=== PATIENT | female | born 1985 | race African-American/Black ===

== ENCOUNTER 2016-06-11 19:22 | Emergency (ER) | payer OTHER ==
[~2016-06-11 19:22] MED LIST: ALPR0.25 PO; BENZ100C PO; IBUP-1060 PO; TRAM50TA PO
[2016-06-11 21:22] LABS: BILIRUBIN,URINE NEGATIVE (NEG); GLUCOSE,URINE NEGATIVE (NEG); NITRITE,URINE NEGATIVE (NEG); PH,URINE 7.5; PROTEIN,URINE NEGATIVE (NEG-TRACE); UROBILINOGEN,URINE 0.2 mg/dL (0.2 mg/dL)
[2016-06-11 21:31] LABS: NEG OBC UR NEG; POS OBC UR POS
[2016-06-11 21:36] LABS: BACTERIA,URINE FEW /HPF (0-FEW); RBC,URINE 0 /HPF (0-2); SQUAMOUS EPITHELIAL CELL,UR MOD /LPF; WBC,URINE OCC /HPF (0-4)
[2016-06-11 22:22] VITALS: BP 123/77
[2016-06-11] MEDS ORDERED: FLUC150T PO (22:36)
[2016-06-11] MEDS ORDERED: METR500T PO (22:36)
--- NOTE | 2016-06-11 22:36 | PHYS DOC ---
Past Medical History Past Medical History: Anxiety, Other Additional Past Medical Histor: Gestational Hypertension, Kienbock disease Past Surgical History: Other Additional Past Surgical Histo: Hernia, partial R)wrist replacement Alcohol Use: Occasionally Drug Use: Marijuana Adult General Chief Complaint Chief Complaint: CONTISPATION [facility] HPI Patient is a 31 year old female with history of anxiety presents today with constipation for the last 2 weeks. Patient states she has tried MiraLAX 1 time as well as magnesium sidetracked one time and has had one small bowel movement 4 days ago. Patient denies any nausea vomiting. Denies any fever. She states she has poor appetite. Denies any know cause for her constipation. She states she also has vaginal discharge but she is not concerned for STDs. Review of Systems Review of Systems Constitutional: Denies fever or chills [] Eyes: Denies change in visual acuity, redness, or eye pain [] HENT: Denies nasal congestion or sore throat [] Respiratory: Denies cough or shortness of breath [] Cardiovascular: No additional information not addressed in HPI [] GI: Constipation : Vaginal discharge Musculoskeletal: Denies back pain or joint pain [] Integument: Denies rash or skin lesions [] Neurologic: Denies headache, focal weakness or sensory changes [] Endocrine: Denies polyuria or polydipsia [] Current Medications Current Medications Current Medications Medications (Trade) Dose Ordered Sig/Kane Start Time Stop Time Status Last Admin Dose Admin Bisacodyl (Dulcolax Tab) 10 mg 1X ONCE 06/11/16 23:00 06/11/16 23:01 Magnesium Citrate (Citroma) 296 ml 1X ONCE 06/11/16 23:00 06/11/16 23:01 Sodium Biphosphate/ Sodium Phosphate (Fleet Adult) 133 ml 1X ONCE 06/11/16 23:00 06/11/16 23:01 Allergies Allergies Allergies Coded Allergies Type Severity Reaction Last Updated Verified shellfish derived Allergy Intermediate Hives 10/28/15 Yes Physical Exam Physical Exam Constitutional: Well developed, well nourished, no acute distress, non-toxic appearance. [] HENT: Normocephalic, atraumatic, bilateral external ears normal, oropharynx moist, no oral exudates, nose normal. [] Eyes: PERRLA, EOMI, conjunctiva normal, no discharge. [] Neck: Normal range of motion, no tenderness, supple, no stridor. [] Cardiovascular:Heart rate regular rhythm, no murmur [] Lungs & Thorax: Bilateral breath sounds clear to auscultation [] Abdomen: Bowel sounds normal, soft, no tenderness, no masses, no pulsatile masses. [] Pelvic exam External pelvic appears normal, cervix is closed no CMT, no adnexal tenderness, moderate amount of white discharge in the vaginal vault. Skin: Warm, dry, no erythema, no rash. [] Back: No tenderness, no CVA tenderness. [] Extremities: No tenderness, no cyanosis, no clubbing, ROM intact, no edema. [] Neurologic: Alert and oriented X 3, normal motor function, normal sensory function, no focal deficits noted. [] Psychologic: Affect normal, judgement normal, mood normal. [] Current Patient Data Vital Signs Vital Signs Date Time Temp Pulse Resp B/P Pulse Ox O2 Delivery O2 Flow Rate FiO2 06/11/16 20:33 98.3 80 16 138/87 100 Room Air 98.3 Lab Values Laboratory Tests Test 06/11/16 20:23 Urine Collection Type Unknown Urine Color Yellow Urine Clarity Clear Urine pH 7.5 Urine Specific [place] 1.020 Urine Protein Negativemg/dL (NEG-TRACE) Urine Glucose (UA) Negativemg/dL (NEG) Urine Ketones (Stick) Negativemg/dL (NEG) Urine Blood Negative (NEG) Urine Nitrite Negative (NEG) Urine Bilirubin Negative (NEG) Urine Urobilinogen Dipstick 0.2mg/dL (0.2 mg/dL) Urine Leukocyte Esterase Negative (NEG) Urine RBC 0/HPF (0-2) Urine WBC Occ/HPF (0-4) Urine Squamous Epithelial Cells Mod/LPF Urine Bacteria Few/HPF (0-FEW) Urine Mucus Slight/LPF Urine Test Negative (NEG) Microbiology 06/11/16 Wet Prep - Final, Complete EKG EKG [] Radiology/Procedures Radiology/Procedures [] Course & Med Decision Making Course & Med Decision Making Pertinent Labs and Imaging studies reviewed. (See chart for details) Patient is in the ED with constipation as well as vaginal discharge. Acute abdominal series interpreted by Dr. Llanos has no acute findings but noted for constipation. Patient was given mag citrate in the ED as well as a Fleet enema. She had a large bowel movement in the ED. We talked about increasing fiber intake as well as water intake. Negative urine hCG, urine negative for infection. Wet prep positive for BV. She was also discharged Flagyl. She requested fluconazole for yeast infection prophylaxis, Fluconazole was given to her. She was provided return precautions and discharged in stable condition Mike Disclaimer Mike Disclaimer This electronic medical record was generated, in whole or in part, using a voice recognition dictation system. Departure Departure Impression: Primary Impression: Constipation Additional Impression: Bacterial vaginosis Disposition: 01 HOME, SELF-CARE Condition: STABLE Referrals: CHRISTAL MARK MD (PCP) follow with your doctor in one week. Patient Instructions: Bacterial Vaginosis, Constipation, Adult Additional Instructions: You were seen for constipation, consider taking mag citrate as needed for constipation. Consider taking MiraLAX daily to prevent constipation. Increase your dietary fiber intake as well as a water intake. Follow-up with your own doctor in one week. Come back to the emergency room if symptoms worsen. You also are positive for bacterial vaginosis. Complete your antibiotics. Scripts Fluconazole (Diflucan)150 Mg Tablet1 Tab PO ONCE #1 TAB Ref 1 Take one today and repeat in 7 days Prov:SCOOTER CHEUNG APRN 06/11/16 Metronidazole (Flagyl)500 Mg Tablet1 Tab PO BID #14 TAB Prov:SCOOTER CHEUNG APRN 06/11/16 Problem Qualifiers Primary Impression: Constipation Constipation type: unspecified constipation type Qualified Code: K59.00 - Constipation, unspecified SCOOTER CHEUNG APRN Jun 11, 2016 22:37
[2016-06-11] MEDS ORDERED: SODIUM PHOSPHATES 19/7GM 133 ML ENEMA. PR ONE (23:00)
[2016-06-11] MEDS ORDERED: BISACODYL 5 MG TABLET.DR. PO ONE (23:00)
[2016-06-11] MEDS ORDERED: MAGNESIUM CITRATE 296 ML SOLUTION. PO ONE (23:00)
--- NOTE | 2016-06-12 08:16 | RAD ---
Indication abdominal pain. A single view of the chest was obtained as well as flat and upright films of the abdomen. The chest is compared to an examination 08/06/2015. No prior plain film imaging of the abdomen is available. The heart and pulmonary vessels appear normal. The lungs are clear. There is no pleural fluid or pneumothorax. Bony structures appear grossly intact. There is no free air. The abdominal gas pattern is normal. No organomegaly or abnormal calculi are seen. Moderate amount of stool is noted in the large bowel. IUD is noted. IMPRESSION: No acute or significant finding seen in the chest or abdomen on plain films
== END 2016-06-11 23:22 | disposition home or self-care (01) ==
LOC: ER 19:22
DX: K59.00 Constipation, unspecified (principal); N76.0 Acute vaginitis; F41.9 Anxiety disorder, unspecified; Z96.631 Presence of right artificial wrist joint; Z91.013 Allergy to seafood
CPT/HCPCS: 74022; 81001; 81025; 87491; 87591; 99285; Q0111

== ENCOUNTER 2017-03-02 18:45 | Emergency (ER) | payer OTHER ==
[~2017-03-02] VITALS: Ht 167.6 cm; Wt 89.8 kg
[~2017-03-02 18:45] MED LIST changes: +DOXY100C2 PO; +FLUC150T PO; +METR500T PO; +NITR100C62 PO
[2017-03-02] MEDS ORDERED: LIDO:MAALOX:DONNATAL 1:1:1 15 ML SINGLE DOSE SWSW ONE (19:30)
[2017-03-02 19:33] LABS: BILIRUBIN,URINE NEGATIVE (NEG); GLUCOSE,URINE NEGATIVE (NEG); NITRITE,URINE NEGATIVE (NEG); PROTEIN,URINE NEGATIVE (NEG-TRACE)
[2017-03-02 19:43] LABS: BACTERIA,URINE 0 /HPF (0-FEW); RBC,URINE 0 /HPF (0-2); SQUAMOUS EPITHELIAL CELL,UR FEW /LPF; WBC,URINE OCC /HPF (0-4)
[2017-03-02 20:00] VITALS: BP 165/94
[2017-03-02] MEDS ORDERED: BENZONATATE 100 MG CAPSULE. PO ONE (20:00)
[2017-03-02] MEDS ORDERED: FLUTICASONE 50MCG/NASAL SPRAY 16GM BOTTLE. NS ONE (20:00)
[2017-03-02] MEDS ORDERED: NAPROXEN 500 MG TABLET PO ONE (20:00)
[2017-03-02 20:22] LABS: OBC FLU VALID
[2017-03-02] MEDS ORDERED: GUAI600T47 PO (20:37)
[2017-03-02] MEDS ORDERED: BENZ100C PO (20:37)
--- NOTE | 2017-03-03 00:56 | ED.ADGEN ---
Past Medical History Past Medical History: Anxiety, Other Additional Past Medical Histor: Gestational Hypertension, Kienbock disease Past Surgical History: Other Additional Past Surgical Histo: Hernia, partial R)wrist replacement, RIGHT HIP Alcohol Use: Occasionally Drug Use: Marijuana Adult General Chief Complaint Chief Complaint: MULTIPLE COMPLAINTS HPI HPI Patient is a 31 year old woman, who previously was on blood pressure medication was taken off after she lost weight, who does not take any medications regular basis, who presents to the emergency department with a complaint of cough, productive of yellow sputum, rhinorrhea, sore throat, nasal congestion, body aches, chest pain with coughing, headache, one episode of loose brown stool this morning, that began last week. Patient states that she is positive for sick contacts in her children who she states are now better " but I feel worse than they did". Patient has not yet received a flu vaccination , other vaccines are up-to-date. She states he's been using [id number] medications "a whole bunch", without relief. She states that she last used acetaminophen early this morning. Denies any vomiting, states that she has chest pain with coughing, denies any weakness, numbness, tingling, vision changes, rashes, swelling of the extremities. Review of Systems Review of Systems Constitutional: Denies fever or chills. [] Eyes: Denies change in visual acuity. [] HENT: Nasal congestion and sore throat. Respiratory: Cough, with chest pain, shortness of breath. No wheezing. Cardiovascular: Chest pain located in the center of her chest with coughing. No edema. GI: Denies abdominal pain, nausea, vomiting, bloody stools or diarrhea. [] : Denies dysuria. [] Musculoskeletal: Denies back pain or joint pain. [] Integument: Denies rash. [] Neurologic: Denies headache, focal weakness or sensory changes. [] Endocrine: Denies polyuria or polydipsia. [] Lymphatic: Denies swollen glands. [] Psychiatric: Denies depression or anxiety. [] Current Medications Current Medications Current Medications Medications (Trade) Dose Ordered Sig/Kane Start Time Stop Time Status Last Admin Dose Admin Benzonatate (Tessalon Perle) 100 mg 1X ONCE 03/02/17 20:00 03/02/17 20:01 DC 03/02/17 20:06 100 MG Fluticasone Propionate (Flonase) 2 spray 1X ONCE 03/02/17 20:00 03/02/17 20:01 DC 03/02/17 20:06 2 SPRAY Multi-Ingredient Mouthwash/Gargle (Gi Cocktail Single Dose) 15 ml 1X ONCE 03/02/17 19:30 03/02/17 19:31 DC 03/02/17 19:53 15 ML Naproxen (Naprosyn) 500 mg 1X ONCE 03/02/17 20:00 03/02/17 20:01 DC 03/02/17 20:05 500 MG Allergies Allergies Allergies Coded Allergies Type Severity Reaction Last Updated Verified shellfish derived Allergy Intermediate Hives 10/28/15 Yes Physical Exam Physical Exam Constitutional: Well developed, well nourished, no acute distress, non-toxic appearance. [] HENT: Normocephalic, atraumatic, bilateral external ears normal, oropharynx moist, no oral exudates, patient with erythema of the oropharynx without exudate stated, patient with significant swelling interpreted as bilaterally with clear rhinorrhea. Eyes: PERRLA, EOMI, conjunctiva normal, no discharge. [] Neck: Normal range of motion, no tenderness, supple, no stridor. [] Cardiovascular:Heart rate regular rhythm, no murmur, S1, S2, no rubs or gallops. ] Lungs & Thorax: Bilateral breath sounds clear to auscultation, no wheezing, rhonchi, rales. No chest or crepitus or tenderness. [Patient cost her examination, limiting slightly.] Abdomen: Bowel sounds normal, soft, no tenderness, no masses, no pulsatile masses. [] Skin: Warm, dry, no erythema, no rash. [] Back: No tenderness, no CVA tenderness. [] Extremities: No tenderness, no cyanosis, no clubbing, ROM intact, no edema. [] Neurologic: Alert and oriented X 3, normal motor function, normal sensory function, no focal deficits noted. [] Psychologic: Affect normal, judgement normal, mood normal. [] Current Patient Data Vital Signs Vital Signs Date Time Temp Pulse Resp B/P (MAP) Pulse Ox O2 Delivery O2 Flow Rate FiO2 03/02/17 20:00 75 165/94 (117) 100 Room Air 03/02/17 19:05 98.3 20 98.3 Lab Values Laboratory Tests Test 03/02/17 19:08 03/02/17 19:20 03/02/17 19:38 POC Urine HCG, Qualitative Hcg negative (Negative) Urine Collection Type Unknown Urine Color Yellow Urine Clarity Clear Urine pH 8.0 Urine Specific [place] 1.010 Urine Protein Negative mg/dL (NEG-TRACE) Urine Glucose (UA) Negative mg/dL (NEG) Urine Ketones (Stick) Negative mg/dL (NEG) Urine Blood Negative (NEG) Urine Nitrite Negative (NEG) Urine Bilirubin Negative (NEG) Urine Urobilinogen Dipstick 1.0 mg/dL (0.2 mg/dL) Urine Leukocyte Esterase Trace (NEG) Urine RBC 0 /HPF (0-2) Urine WBC Occ /HPF (0-4) Urine Squamous Epithelial Cells Few /LPF Urine Bacteria 0 /HPF (0-FEW) Influenza Type A Antigen Negative (NEGATIVE) Influenza Type B Antigen Negative (NEGATIVE) EKG EKG ECG: Rhythm strip:[] Sinus rhythm, heart rate 78 bpm, no ectopy. As interpreted by me. Radiology/Procedures Radiology/Procedures Chest x-ray: PA and lateral: 2 view: Normal cardiac pulmonary silhouette, no infiltrates, no effusions, no soft tissue or bone abdomen amount is identified. As interpreted by me. Course & Med Decision Making Course & Med Decision Making Pertinent Labs and Imaging studies reviewed. (See chart for details) Patient examination and history is consistent with a upper respiratory infection , noted have significant nasal congestion and clear rhinorrhea. Lungs are clear bilaterally, chest x-ray reveals no concerning findings, and vital signs are within normal limits. Patient received fluticasone nasal spray in the ED, a dose of naproxen, and Tessalon Perle. Is feeling better on reevaluation. Discussed with patient that there is no indication for antibioticsand her examination, recommended she follow up with a primary care provider symptoms persist, discussed concerning symptoms that prompt return to the ED. Patient was discharged with prescription for Mucinex, Tessalon Perles, to continue fluticasone, and to return to the ED for any new or concerning symptoms as discussed. Dragon Disclaimer Dragon Disclaimer This electronic medical record was generated, in whole or in part, using a voice recognition dictation system. Departure Impression: Primary Impression: Viral URI with cough Disposition: HOME, SELF-CARE Condition: IMPROVED Scripts Guaifenesin (MUCINEX) 600 Mg Tablet.er 1 TAB PO BID Y for COUGH, #14 TAB Prov: KODAK AGUILA DO 03/02/17 Benzonatate (TESSALON PERLE) 100 Mg Capsule 100 MG PO TID Y for COUGH, #15 CAP Prov: KODAK AGUILA DO 03/02/17 KODAK AGUILA DO Mar 03, 2017 00:56
[2017-03-03 07:08] LABS: NEGATIVE OBC STREP NEG; POSITIVE OBC STREP POS
--- NOTE | 2017-03-03 08:24 | RAD ---
EXAM: Chest, 2 views. HISTORY: Cough. COMPARISON: 06/11/2016. FINDINGS: Frontal and lateral views of the chest are obtained. There is no infiltrate, effusion or pneumothorax. The heart is normal in size. IMPRESSION: No acute pulmonary finding.
== END 2017-03-02 21:15 | disposition home or self-care (01) ==
LOC: ER 18:45
DX: J06.9 Acute upper respiratory infection, unspecified (principal); Z91.013 Allergy to seafood
CPT/HCPCS: 71020; 81001; 81025; 87070; 87804; 87880; 99283

== ENCOUNTER 2017-03-07 09:40 | Emergency (ER) | payer OTHER ==
[~2017-03-07] VITALS: Ht 167.6 cm; Wt 89.8 kg
[~2017-03-07 09:40] MED LIST changes: +GUAI600T47 PO
[2017-03-07 10:14] LABS: BILIRUBIN,URINE NEGATIVE (NEG); GLUCOSE,URINE NEGATIVE (NEG); NITRITE,URINE NEGATIVE (NEG); PH,URINE 7.5; PROTEIN,URINE NEGATIVE (NEG-TRACE); UROBILINOGEN,URINE 0.2 mg/dL (0.2 mg/dL)
[2017-03-07] MEDS ORDERED: IPRATRPIUM/ALBUTEROL 0.5/2.5MG 3 ML NEBU. NEB ONE (10:30)
--- NOTE | 2017-03-07 10:31 | PHYS DOC ---
Past Medical History Past Medical History: Anxiety, Other Additional Past Medical Histor: Gestational Hypertension, Kienbock disease Past Surgical History: Other Additional Past Surgical Histo: Hernia, partial R)wrist replacement, RIGHT HIP Alcohol Use: Occasionally Drug Use: Marijuana Adult General Chief Complaint Chief Complaint: HEADACHE HPI HPI Patient is a 31 year old female presents to emergency department stating that she was seen here approximately one week ago for an upper respiratory infection. She states that she continues to have a cough congestion with a sore throat. She states she is also been having elevated blood pressures headache and blurred vision for the last 4 days. States that she has taken over-the- counter medications Tylenol ibuprofen and the medication she was recommended for the upper respiratory infection with no relief. Patient states she has slight chest discomfort however she believes is from coughing. Review of Systems Review of Systems Constitutional: Denies fever or chills [] Eyes: Denies change in visual acuity, redness, or eye pain [] HENT: nasal congestion and sore throat [] Respiratory: cough and shortness of breath [] Cardiovascular: No additional information not addressed in HPI [] GI: Denies abdominal pain, nausea, vomiting, bloody stools or diarrhea [] : Denies dysuria or hematuria [] Musculoskeletal: Denies back pain or joint pain [] Integument: Denies rash or skin lesions [] Neurologic: headache, denies focal weakness or sensory changes [] Endocrine: Denies polyuria or polydipsia [] Current Medications Current Medications Current Medications Medications (Trade) Dose Ordered Sig/Kane Start Time Stop Time Status Last Admin Dose Admin Albuterol/ Ipratropium (Duoneb) 3 ml 1X ONCE 03/07/17 10:30 03/07/17 10:31 DC 03/07/17 10:54 3 ML Allergies Allergies Allergies Coded Allergies Type Severity Reaction Last Updated Verified shellfish derived Allergy Intermediate Hives 10/28/15 Yes Physical Exam Physical Exam Constitutional: Well developed, well nourished, no acute distress, non-toxic appearance. [] HENT: Normocephalic, atraumatic, bilateral external ears normal, oropharynx moist, no oral exudates, nose normal. Bilateral tympanic membranes appear to be normal. Throat with redness and exudate noted on the left tonsil. Eyes: PERRLA, EOMI, conjunctiva normal, no discharge. [] Neck: Normal range of motion, no tenderness, supple, no stridor. [] Cardiovascular:Heart rate regular rhythm, no murmur [] Lungs & Thorax: Bilateral breath sounds wheezing noted Skin: Warm, dry, no erythema, no rash. [] Extremities: No tenderness, no cyanosis, no clubbing, ROM intact, no edema. [] Neurologic: Alert and oriented X 3, normal motor function, normal sensory function, no focal deficits noted. [] Psychologic: Affect normal, judgement normal, mood normal. [] Current Patient Data Vital Signs Vital Signs Date Time Temp Pulse Resp B/P (MAP) Pulse Ox O2 Delivery O2 Flow Rate FiO2 03/07/17 10:59 68 22 152/89 (110) 100 Room Air 03/07/17 10:03 98.3 98.3 Lab Values Laboratory Tests Test 03/07/17 09:51 03/07/17 10:01 03/07/17 10:20 03/07/17 10:57 Urine Collection Type Unknown Urine Color Yellow Urine Clarity Clear Urine pH 7.5 Urine Specific [place] 1.010 Urine Protein Negative mg/dL (NEG-TRACE) Urine Glucose (UA) Negative mg/dL (NEG) Urine Ketones (Stick) Negative mg/dL (NEG) Urine Blood Large (NEG) Urine Nitrite Negative (NEG) Urine Bilirubin Negative (NEG) Urine Urobilinogen Dipstick 0.2 mg/dL (0.2 mg/dL) Urine Leukocyte Esterase Small (NEG) Urine RBC 0 /HPF (0-2) Urine WBC Occ /HPF (0-4) Urine Squamous Epithelial Cells Mod /LPF Urine Bacteria 0 /HPF (0-FEW) Urine Mucus Slight /LPF POC Urine HCG, Qualitative Hcg negative (Negative) Group A Streptococcus Rapid Negative (NEGATIVE) White Blood Count 5.8 x10^3/uL (4.0-11.0) Red Blood Count 4.30 x10^6/uL (3.50-5.40) Hemoglobin 13.1 g/dL (12.0-15.5) Hematocrit 38.4 % (36.0-47.0) Mean Corpuscular Volume 89 fL (79-100) Mean Corpuscular Hemoglobin 31 pg (25-35) Mean Corpuscular Hemoglobin Concent 34 g/dL (31-37) Red Cell Distribution Width 13.0 % (11.5-14.5) Platelet Count 210 x10^3/uL (140-400) Neutrophils (%) (Auto) 55 % (31-73) Lymphocytes (%) (Auto) 36 % (24-48) Monocytes (%) (Auto) 6 % (0-9) Eosinophils (%) (Auto) 3 % (0-3) Basophils (%) (Auto) 1 % (0-3) Neutrophils # (Auto) 3.2 x10^3uL (1.8-7.7) Lymphocytes # (Auto) 2.1 x10^3/uL (1.0-4.8) Monocytes # (Auto) 0.3 x10^3/uL (0.0-1.1) Eosinophils # (Auto) 0.2 x10^3/uL (0.0-0.7) Basophils # (Auto) 0.0 x10^3/uL (0.0-0.2) Sodium Level 141 mmol/L (136-145) Potassium Level 3.8 mmol/L (3.5-5.1) Chloride Level 107 mmol/L (98-107) Carbon Dioxide Level 29 mmol/L (21-32) Anion Gap 5 (6-14) L Blood Urea Nitrogen 9 mg/dL (7-20) Creatinine 0.7 mg/dL (0.6-1.0) Estimated GFR (Cockcroft-Gault) 117.3 BUN/Creatinine Ratio 13 (6-20) Glucose Level 92 mg/dL (70-99) Calcium Level 9.7 mg/dL (8.5-10.1) Total Bilirubin 0.5 mg/dL (0.2-1.0) Aspartate Amino Transferase (AST) 13 U/L (15-37) L Alanine Aminotransferase (ALT) 15 U/L (14-59) Alkaline Phosphatase 69 U/L (46-116) Total Protein 7.0 g/dL (6.4-8.2) Albumin 3.8 g/dL (3.4-5.0) Albumin/Globulin Ratio 1.2 (1.0-1.7) Laboratory Tests 03/07/17 10:57 Laboratory Tests 03/07/17 10:57 EKG EKG EKG displays a normal sinus rhythm with a ventricular rate of 62 beats minute NJ interval 156 ms Josh additional 80 ms the QT interval of 374 ms there are inverted T waves in lead 3 aVR and V1 V2 V3 EKG interpreted by Dr. Demarco at 10:34 AM on March 07, 2017[] Radiology/Procedures Radiology/Procedures [][place] [address] IMAGING REPORT Signed PATIENT: MITCH GARZA ACCOUNT: [id number] : 1985 LOCATION: ER AGE: 31 SEX: F EXAM STATUS: PRE ER ORD. PHYSICIAN: HA ALDANA APRN REASON: cough, congestion chest discomfort PROCEDURE: CHEST PA & LATERAL PA and lateral chest. History: Cough congestion, chest discomfort PA and lateral views were taken of the chest. Lungs are free of infiltrates. Heart is normal in size. There is no pleural effusion. Impression: 1. No acute chest disease. DICTATED and SIGNED BY: ALANIS ORTIZ MD DATE: 03/07/17 1046 CC: HA ALDANA APRN; CHRISTAL MARK MD ~ [id number] [place] [address] IMAGING REPORT Signed PATIENT: MITCH GARZA ACCOUNT: [id number] : 1985 LOCATION: ER AGE: 31 SEX: F EXAM STATUS: PRE ER ORD. PHYSICIAN: HA ALDANA APRN REASON: HTN with headache and blurred vision PROCEDURE: CT HEAD WO CONTRAST One or more of the following individualized dose reduction techniques were utilized for this examination: 1. Automated exposure control 2. Adjustment of the mA and/or kV according to patient size 3. Use of iterative reconstruction technique CT brain without contrast. History: Headache with blurred vision CT scan of brain was done without contrast. Sinuses are clear. There is no intracranial hemorrhage. There is no mass or shift of the midline. Ventricles are normal in size. An acute CVA is not identified. Impression: 1. No intracranial hemorrhage or mass or acute finding noted. DICTATED and SIGNED BY: ALANIS ORTIZ MD DATE: 03/07/17 1103 CC: HA ALDANA APRN; CHRISTAL MARK MD ~ Course & Med Decision Making Course & Med Decision Making Pertinent Labs and Imaging studies reviewed. (See chart for details) Patient's CT scan was negative, chest x-ray was negative. Patient was provided with a DuoNeb treatment in which patient states didn't really help whole lot. She still has cough and congestion. Patient's urinalysis was positive for UTI, CBC, CMP were negative as well. Patient will be discharged home in stable condition blood pressure is 152/84. Patient will be placed on Levaquin. She'll be encouraged to use Mucinex [id number]. She'll be provided with Tessalon Perles for her cough. Recommended plenty of fluids. Patient will also be encouraged to use Coricidin HBP over the counter. Patient was provided with signs and symptoms to return back to emergency department. All questions and concerns been answered at the patient's bedside. [] Dragon Disclaimer Dragon Disclaimer This electronic medical record was generated, in whole or in part, using a voice recognition dictation system. Departure Departure Impression: Primary Impression: Sinusitis Additional Impression: UTI (lower urinary tract infection) Disposition: HOME, SELF-CARE Condition: STABLE Referrals: CHRISTAL MARK MD (PCP) Patient Instructions: Sinusitis, [id number], Urinary Tract Infection, Easy-to -Read Additional Instructions: Activity as tolerated. Coricidin HBP as directed by barrel filler head. Mucinex DM may also be taken as instructed by barrel filler head [id number]. Antibiotic as prescribed. Medications as prescribed Drink plenty of fluids. Followup with primary care provider in 3-5 days Return to emergency department as needed for signs and symptoms that become worse. Scripts Levofloxacin (LEVAQUIN) 500 Mg Tablet 1 TAB PO DAILY, #7 TAB Prov: HA ALDANA APRN 03/07/17 Benzonatate (TESSALON PERLE) 100 Mg Capsule 1 CAP PO TID, #30 CAP Prov: HA ALDANA APRN 03/07/17 Albuterol Sulfate (PROAIR HFA INHALER) 8.5 Gm Hfa.aer.ad 1 PUFF INH PRN Q6HRS Y for SHORTNESS OF BREATH, #1 INHALER 0 Refills Prov: HA ALDANA APRN 03/07/17 Prednisone (PREDNISONE) 20 Mg Tablet 40 MG PO DAILY for 7 Days, #14 TAB Prov: HA ALDANA APRN 03/07/17 Problem Qualifiers Primary Impression: Sinusitis Sinusitis location: unspecified location Chronicity: unspecified Qualified Codes: J32.9 - Chronic sinusitis, unspecified HA ALDANA APRN Mar 07, 2017 10:31 VIRGIL DAVALOS MD Mar 07, 2017 10:53
[2017-03-07 10:33] LABS: BACTERIA,URINE 0 /HPF (0-FEW); RBC,URINE 0 /HPF (0-2); SQUAMOUS EPITHELIAL CELL,UR MOD /LPF; WBC,URINE OCC /HPF (0-4)
--- NOTE | 2017-03-07 10:49 | RAD ---
PA and lateral chest. History: Cough congestion, chest discomfort PA and lateral views were taken of the chest. Lungs are free of infiltrates. Heart is normal in size. There is no pleural effusion. Impression: 1. No acute chest disease.
[2017-03-07 10:53] LABS: NEGATIVE OBC STREP NEG; POSITIVE OBC STREP POS
--- NOTE | 2017-03-07 11:07 | RAD ---
One or more of the following individualized dose reduction techniques were utilized for this examination: 1. Automated exposure control 2. Adjustment of the mA and/or kV according to patient size 3. Use of iterative reconstruction technique CT brain without contrast. History: Headache with blurred vision CT scan of brain was done without contrast. Sinuses are clear. There is no intracranial hemorrhage. There is no mass or shift of the midline. Ventricles are normal in size. An acute CVA is not identified. Impression: 1. No intracranial hemorrhage or mass or acute finding noted.
[2017-03-07 11:10] LABS: BASO % 1 % (0-3); EOS % 3 % (0-3); HEMATOCRIT 38.4 % (36.0-47.0); HEMOGLOBIN 13.1 g/dL (12.0-15.5); LYMPH # 2.1 x10^3/uL (1.0-4.8); LYMPH % 36 % (24-48); MEAN CORPUSCULAR HEMOGLOBIN 31 pg (25-35); MEAN CORPUSCULAR HGB CONC 34 g/dL (31-37); MEAN CORPUSCULAR VOLUME 89 fL (79-100); MONO % 6 % (0-9); NEUT % 55 % (31-73); PLATELET COUNT 210 x10^3/uL (140-400); WHITE BLOOD COUNT 5.8 x10^3/uL (4.0-11.0)
[2017-03-07 11:18] LABS: CALCIUM 9.7 mg/dL (8.5-10.1); CREATININE 0.7 mg/dL (0.6-1.0); GFR 117.3; POTASSIUM 3.8 mmol/L (3.5-5.1)
[2017-03-07 11:24] LABS: ALBUMIN 3.8 g/dL (3.4-5.0); ALBUMIN/GLOBULIN RATIO 1.2 (1.0-1.7); TOTAL BILIRUBIN 0.5 mg/dL (0.2-1.0)
[2017-03-07] MEDS ORDERED: PROAIR HFA8.5 GM INH (11:41)
[2017-03-07] MEDS ORDERED: BENZ100C PO (11:41)
[2017-03-07] MEDS ORDERED: LEVO500T59 PO (11:41)
[2017-03-07] MEDS ORDERED: PRED20TA PO (11:41)
[2017-03-07 12:00] VITALS: BP 167/96
--- NOTE | 2017-03-07 17:15 | EKG ---
[facility] [address] [place] [address] Test Date: 2017-03-07 Test Time: 10:27:22 Pat Name: MITCH GARZA Department: Room: Gender: F Lead Manufacturing Engineering Tech: : 1985 Requested By: HA ALDANA Order Number: [id number] Reading MD: Measurements Intervals [place] Rate: 62 P: 27 HI: 156 QRS: -12 QRSD: 80 T: 8 QT: 374 QTc: 382 Interpretive Statements SINUS RHYTHM ATRIAL PREMATURE COMPLEX(ES) LEFTWARD AXIS QRS(T) CONTOUR ABNORMALITY CANNOT RULE OUT ANTEROSEPTAL MYOCARDIAL DAMAGE RI6.01 Unconfirmed report No previous ECG available for comparison
== END 2017-03-07 12:13 | disposition home or self-care (01) ==
LOC: ER 09:40
DX: J32.9 Chronic sinusitis, unspecified (principal); N39.0 Urinary tract infection, site not specified; I10 Essential (primary) hypertension; Z91.013 Allergy to seafood
CPT/HCPCS: 36415; 70450; 71020; 80053; 81001; 81025; 85025; 87070; 87086; 87880; 93005; 94250; 94640; 99285; J7620

== ENCOUNTER 2017-11-12 12:50 | Emergency (ER) | payer OTHER ==
[2017-11-13 05:44] LABS: NEGATIVE OBC STREP NEG; POSITIVE OBC STREP POS
== END 2017-11-12 14:49 | disposition home or self-care (01) ==
LOC: ER 12:50
DX: O99.512 Diseases of the respiratory system complicating pregnancy, second trimester (principal); J02.9 Acute pharyngitis, unspecified; J45.909 Unspecified asthma, uncomplicated; O16.2 Unspecified maternal hypertension, second trimester; Z91.013 Allergy to seafood; Z3A.24 24 weeks gestation of pregnancy
CPT/HCPCS: 87070; 87880; 99283

== ENCOUNTER 2018-01-16 00:38 | Observation (INO) | payer OTHER ==
[2017-11-12 13:55] VITALS: BP 139/73
[~2018-01-16 00:38] MED LIST changes: +AMOX500C PO; +LEVO500T59 PO; +PRED20TA PO; +PROAIR HFA8.5 GM INH
[2018-01-16] MEDS ORDERED: IV RINGERS,LACTATED 1000ML 1,000 ML IV PRN (01:30)
[2018-01-16 01:35] LABS: BILIRUBIN,URINE NEGATIVE (NEG); CLARITY,URINE CLEAR; COLOR,URINE YELLOW; NITRITE,URINE NEGATIVE (NEG); PH,URINE 6.5; PROTEIN,URINE NEGATIVE (NEG-TRACE)
[2018-01-16 01:42] LABS: BACTERIA,URINE FEW /HPF (0-FEW); RBC,URINE 0 /HPF (0-2); SQUAMOUS EPITHELIAL CELL,UR FEW /LPF; WBC,URINE OCC /HPF (0-4)
[2018-01-16 01:43] LABS: BARBITURATES NEG (NEG); BENZODIAZEPINES NEG (NEG); CANNABINOIDS POS (NEG); COCAINE NEG (NEG); METHADONE NEG (NEG); OPIATES NEG (NEG); PHENCYCLIDINE NEG (NEG)
[2018-01-16 01:44] LABS: AMPHETAMINE/METHAMPHETAMINE NEG (NEG)
[2018-01-16] MEDS ORDERED: BISACODYL 10 MG SUPP.RECT. PR ONE (01:45)
[2018-01-16] MEDS ORDERED: MAGNESIUM CITRATE 296 ML SOLUTION. PO ONE (01:45)
== END 2018-01-16 03:44 | disposition home or self-care (01) ==
LOC: 3 SO LND 00:38
PROVIDERS: ADMIT Obstetrics & Gynecology; ATTEND Obstetrics & Gynecology
DX: O26.892 Other specified pregnancy related conditions, second trimester (principal); R10.30 Lower abdominal pain, unspecified; K59.00 Constipation, unspecified; Z3A.25 25 weeks gestation of pregnancy; Z79.899 Other long term (current) drug therapy
CPT/HCPCS: 80307; 81001; G0378; G0379; G0479

== ENCOUNTER 2019-02-03 00:14 | Emergency (ER) | payer OTHER ==
[~2019-02-03] VITALS: Ht 170.2 cm; Wt 99.8 kg
[~2019-02-03 00:14] MED LIST changes: +ALBU2.5V8 INH; -PROAIR HFA8.5 GM INH
[2019-02-03 00:38] VITALS: BP 194/86
[2019-02-03] MEDS ORDERED: AZITHROMYCIN 250 MG TABLET. ONE (00:48)
[2019-02-03] MEDS ORDERED: cefTRIAXone IM 250 MG VIAL IM ONE ×2 (00:49→01:00)
[2019-02-03] MEDS ORDERED: AZITHROMYCIN 250 MG TABLET. PO ONE (01:00)
--- NOTE | 2019-02-03 01:54 | PHYS DOC ---
Past Medical History Past Medical History: Anxiety, Asthma, Hypertension, Other Additional Past Medical Histor: Gestational Hypertension, Kienbock disease Past Surgical History: Other Additional Past Surgical Histo: Hernia,partial R)wrist replacement,R HIP,R WRIST ORIF Alcohol Use: Occasionally Drug Use: Marijuana Adult General Chief Complaint Chief Complaint: ABDOMINAL PAIN HPI HPI Patient is a 33-year-old female who presents with complaint of suprapubic pain and urinary discomfort for the last 3 days. She denies any significant vaginal discharge and states that she does have some spotting right now and she is about to start her menstrual cycle. Patient does indicate that she could potentially have an STD and would like to be tested. She denies any fever, nausea or vomiting.[] Review of Systems Review of Systems Constitutional: Denies fever or chills [] Respiratory: Denies cough or shortness of breath [] Cardiovascular: No additional information not addressed in HPI [] GI: [place] of suprapubic pain without vomiting or diarrhea [] : Complains of dysuria[] Musculoskeletal: Denies back pain or joint pain [] Current Medications Current Medications Current Medications Medications (Trade) Dose Ordered Sig/Kane Start Time Stop Time Status Last Admin Dose Admin Azithromycin (Zithromax) 250 mg STK-MED ONCE 02/03/19 00:48 02/03/19 00:49 DC Ceftriaxone Sodium (Rocephin Im) 250 mg STK-MED ONCE 02/03/19 00:49 02/03/19 00:49 DC Allergies Allergies Allergies Coded Allergies Type Severity Reaction Last Updated Verified shellfish derived Allergy Intermediate Hives 01/16/18 Yes Physical Exam Physical Exam Constitutional: Well developed, well nourished, no acute distress, non-toxic appearance. [] Cardiovascular:Heart rate regular rhythm, no murmur [] Lungs & Thorax: Bilateral breath sounds clear to auscultation [] Abdomen: Bowel sounds normal, soft, with mild suprapubic tenderness. [] Skin: Warm, dry, no erythema, no rash. [] Current Patient Data Vital Signs Vital Signs Date Time Temp Pulse Resp B/P (MAP) Pulse Ox O2 Delivery O2 Flow Rate FiO2 02/03/19 00:38 98.2 77 18 194/86 (122) 99 Room Air 98.2 Lab Values Laboratory Tests Test 02/03/19 00:40 02/03/19 01:49 Urine Collection Type Unknown Urine Color Yellow Urine Clarity Clear Urine pH 7.0 Urine Specific [place] 1.015 Urine Protein Negative mg/dL (NEG-TRACE) Urine Glucose (UA) Negative mg/dL (NEG) Urine Ketones (Stick) Negative mg/dL (NEG) Urine Blood Small (NEG) Urine Nitrite Negative (NEG) Urine Bilirubin Negative (NEG) Urine Urobilinogen Dipstick 0.2 mg/dL (0.2 mg/dL) Urine Leukocyte Esterase Small (NEG) Urine RBC 0 /HPF (0-2) Urine WBC 5-10 /HPF (0-4) Urine Squamous Epithelial Cells Mod /LPF Urine Bacteria Few /HPF (0-FEW) Urine Mucus Slight /LPF POC Urine HCG, Qualitative Hcg negative (Negative) Microbiology 02/03/19 Wet Prep - Final, Complete EKG EKG [] Radiology/Procedures Radiology/Procedures [] Course & Med Decision Making Course & Med Decision Making Pertinent Labs and Imaging studies reviewed. (See chart for details) [] Dragon Disclaimer Dragon Disclaimer This electronic medical record was generated, in whole or in part, using a voice recognition dictation system. Departure Departure Impression: Primary Impression: Dysuria Disposition: HOME, SELF-CARE Condition: STABLE Referrals: NO PCP (PCP) Patient Instructions: Dysuria LES FUNEZ Jr. DO Feb 03, 2019 01:54
[2019-02-03 01:59] LABS: BILIRUBIN,URINE NEGATIVE (NEG); CLARITY,URINE CLEAR; COLOR,URINE YELLOW; NITRITE,URINE NEGATIVE (NEG); PROTEIN,URINE NEGATIVE (NEG-TRACE); UROBILINOGEN,URINE 0.2 mg/dL (0.2 mg/dL)
[2019-02-03 02:06] LABS: BACTERIA,URINE FEW /HPF (0-FEW); RBC,URINE 0 /HPF (0-2); SQUAMOUS EPITHELIAL CELL,UR MOD /LPF
[2019-02-08 01:12] LABS: GC PROBE Negative (Negative)
== END 2019-02-03 02:10 | disposition home or self-care (01) ==
LOC: ER 00:14
DX: R30.0 Dysuria (principal); R10.30 Lower abdominal pain, unspecified; F41.9 Anxiety disorder, unspecified; J45.909 Unspecified asthma, uncomplicated; I10 Essential (primary) hypertension; Z91.013 Allergy to seafood
CPT/HCPCS: 81001; 81025; 87086; 87491; 87591; 96372; 99284; J0696; Q0111; Q0144

== ENCOUNTER 2019-11-20 16:01 | Emergency (ER) | payer OTHER ==
[~2019-11-20] VITALS: Ht 172.7 cm; Wt 105.4 kg
[2019-11-20 16:23] VITALS: BP 179/105
[2019-11-20 16:29] LABS: BILIRUBIN,URINE NEGATIVE (NEG); CLARITY,URINE CLEAR; COLOR,URINE YELLOW; NITRITE,URINE NEGATIVE (NEG); PROTEIN,URINE NEGATIVE (NEG-TRACE)
[2019-11-20 16:48] LABS: BACTERIA,URINE FEW /HPF (0-FEW); SQUAMOUS EPITHELIAL CELL,UR FEW /LPF
[2019-11-20] MEDS ORDERED: METR500T PO (17:40)
--- NOTE | 2019-11-20 17:40 | PHYS DOC ---
Past Medical History Past Medical History: Anxiety, Asthma, Hypertension, Other Additional Past Medical Histor: Gestational Hypertension, Kienbock disease (DEEPIKA MAY APRN) Past Surgical History: Other Additional Past Surgical Histo: Hernia,partial R)wrist replacement,R HIP,R WRIST ORIF (DEEPIKA MAY APRN) Smoking Status: Former Smoker Alcohol Use: Occasionally Drug Use: Marijuana (DEEPIKA MAY APRN) General Adult EDM: Chief Complaint: PAIN ON URINATION HPI: HPI: Patient is a 34 year old female who presents the emergency department with complaints of increased urinary frequency and pain with urination for last 10 days. She denies any hematuria, or lower back pain. Patient reports that she has had a fishy smelling irregular vaginal discharge that she states is similar to the discharge she has when she has bacterial vaginosis. Patient reports that she may have a sexually transmitted infection. She denies any fever, cough, nausea, vomiting, diarrhea, rash, sore throat, headache, or ear pain. Patient reports a history of high blood pressure but states she does not take medication for her hypertension. She currently denies any pain. (DEEPIKA MAY APRN) Review of Systems: Review of Systems: Constitutional: Denies fever or chills. [] Eyes: Denies change in visual acuity. [] HENT: Denies nasal congestion or sore throat. [] Respiratory: Denies cough or shortness of breath. [] Cardiovascular: Denies chest pain or edema. [] GI: Denies abdominal pain, nausea, vomiting, or diarrhea. [] : See HPI Musculoskeletal: Denies back pain or joint pain. [] Integument: Denies rash. [] Neurologic: Denies headache, focal weakness or sensory changes. [] Endocrine: Denies polyuria or polydipsia. [] Lymphatic: Denies swollen glands. [] Psychiatric: Denies depression or anxiety. [] (DEEPIKA MAY APRN) Heart Score: Risk Factors: Risk Factors: DM, Current or recent (<one month) smoker, HTN, HLP, family history of CAD, obesity. Risk Scores: Score 0 - 3: 2.5% MACE over next 6 weeks - Discharge Home Score 4 - 6: 20.3% MACE over next 6 weeks - Admit for Clinical Observation Score 7 - 10: 72.7% MACE over next 6 weeks - Early Invasive Strategies (DEEPIKA MAY APRN) Current Medications: Current Medications Medications (Trade) Dose Ordered Sig/Kane Start Time Stop Time Status Last Admin Dose Admin Azithromycin (Zithromax) 1,000 mg 1X ONCE 11/20/19 17:45 11/20/19 17:46 UNV Ceftriaxone Sodium (Rocephin Im) 250 mg 1X ONCE 11/20/19 17:45 11/20/19 17:46 UNV (DEEPIKA MAY APRN) Allergies: Allergies: Allergies Coded Allergies Type Severity Reaction Last Updated Verified shellfish derived Allergy Intermediate Hives 01/16/18 Yes (DEEPIKA MAY APRN) Physical Exam: PE: Constitutional: Well developed, well nourished, no acute distress, non-toxic appearance. HENT: Normocephalic, atraumatic, bilateral external ears normal, nose normal. Eyes: PERRLA, EOMI, conjunctiva normal, no discharge. Neck: Normal range of motion, no stridor. Cardiovascular: Heart rate regular rhythm Lungs & Thorax: Respirations even and unlabored, no retractions, no respiratory distress Pelvic Exam: Natural Resource Manager present Abdomen: Nontender, soft External Genitalia: Normal Skin Speculum: Normal vaginal mucosa, malodorous creamy discharge present in vaginal vault, cervix is nonfriable Bimanual: No adnexal masses or tenderness, No CMT Skin: Warm, dry, no erythema, no rash. Extremities: No cyanosis, ROM intact, no edema. Neurologic: Alert and oriented X 3, no focal deficits noted. Psychologic: Affect normal, judgement normal, mood normal. (DEEPIKA MAY APRN) Current Patient Data: Labs: Laboratory Tests Test 11/20/19 16:21 11/20/19 16:25 Urine Collection Type Unknown Urine Color Yellow Urine Clarity Clear Urine pH 6.0 (<5.0-8.0) Urine Specific [place] 1.020 (1.000-1.030) Urine Protein Negative mg/dL (NEG-TRACE) Urine Glucose (UA) Negative mg/dL (NEG) Urine Ketones (Stick) Negative mg/dL (NEG) Urine Blood Negative (NEG) Urine Nitrite Negative (NEG) Urine Bilirubin Negative (NEG) Urine Urobilinogen Dipstick 1.0 mg/dL (0.2 mg/dL) Urine Leukocyte Esterase Small (NEG) Urine RBC 1-2 /HPF (0-2) Urine WBC 1-4 /HPF (0-4) Urine Squamous Epithelial Cells Few /LPF Urine Bacteria Few /HPF (0-FEW) Urine Mucus Mod /LPF POC Urine HCG, Qualitative Hcg negative (Negative) Microbiology 11/20/19 Wet Prep - Final, Complete Vital Signs: Vital Signs Date Time Temp Pulse Resp B/P (MAP) Pulse Ox O2 Delivery O2 Flow Rate FiO2 11/20/19 16:23 98.3 89 16 179/105 (129) 97 Room Air 98.3 (DEEPIKA MAY APRN) EKG: EKG: [] (DEEPIKA MAY APRN) Radiology/Procedures: Radiology/Procedures: [] (DEEPIKA MAY APRN) Course & Med Decision Making: Course & Med Decision Making Pertinent Labs and Imaging studies reviewed. (See chart for details) Patient is a 34-year-old female who presented to the emergency department with concerns of irregular vaginal discharge and dysuria. UA was not concerning for urinary tract infection, wet mount was concerning for bacterial vaginosis and possible STI Patient was treated prophylactically with 250 mg of IM Rocephin, and 1 g of PO Zithromax. Patient was instructed to avoid having intercourse until the results of gonorrhea and chlamydia testing are available, patient was notified that these results would not be available for 48 hours. If one or both of these tests is positive, patient needs to refrain from intercourse for approximately 1 week following the treatment of any current partners. Prescription was written for Flagyl. Patient verbalized an understanding of home care, medications, follow-up, and return to ED instructions and was in agreement with the plan of care. [] (DEEPIKA MAY APRN) Dragon Disclaimer: Dragon Disclaimer: This electronic medical record was generated, in whole or in part, using a voice recognition dictation system. (DEEPIKA MAY APRN) Departure Departure Impression: Primary Impression: Bacterial vaginosis Additional Impression: Contact with and (suspected) exposure to infections with a predominantly sexual mode of transmission Disposition: HOME, SELF-CARE Condition: STABLE Referrals: OLIVIER EDWARDS MD (PCP) Patient Instructions: Bacterial Vaginosis, [id number], Sexually Transmitted Disease, [id number] Additional Instructions: Fill the prescription and use as directed. Recommend that you go to your local health department for comprehensive sexually transmitted disease testing. You have been treated for a suspected gonorrhea and chlamydia. Avoid having intercourse until the results of gonorrhea and chlamydia testing are available, these results will not be available for 48 hours. If one or both of these tests is positive, you need to refrain from intercourse for approximately 1 week following the treatment of any current partners. Follow-up with your primary care doctor if symptoms persist, return to ER symptoms worsen. Scripts Metronidazole (FLAGYL) 500 Mg Tablet 1 TAB PO BID, #14 TAB Prov: DEEPIKA MAY APRN 11/20/19 Justicifation of Admission Dx: Justifications for Admission: Justification of Admission Dx: N/A (DEEPIKA MAY APRN) Attending Signature Attending Signature I have reviewed the PA/ADVERTISING STRATEGIST's note and plan of care. I was available for consultation as needed during the patient's visit in the emergency department. I agree with the clinical impression, plan, and disposition. (GASTON THRASHER DO) DEEPIKA MAY APRN Nov 20, 2019 17:40 GASTON THRASHER DO Nov 26, 2019 05:12
[2019-11-20] MEDS ORDERED: AZITHROMYCIN 250 MG TABLET. PO ONE (18:15)
[2019-11-20] MEDS ORDERED: cefTRIAXone IM 250 MG VIAL IM ONE (18:15)
[2019-11-21 18:09] LABS: GC PROBE Negative (Negative)
== END 2019-11-20 18:05 | disposition home or self-care (01) ==
LOC: ER 16:01
DX: N76.0 Acute vaginitis (principal); B96.89 Other specified bacterial agents as the cause of diseases classified elsewhere; F41.9 Anxiety disorder, unspecified; J45.909 Unspecified asthma, uncomplicated; I10 Essential (primary) hypertension; F12.90 Cannabis use, unspecified, uncomplicated; Z98.890 Other specified postprocedural states; Z87.891 Personal history of nicotine dependence; Z91.013 Allergy to seafood; Z20.2 Contact with and (suspected) exposure to infections with a predominantly sexual mode of transmission
CPT/HCPCS: 81001; 81025; 87086; 87491; 87591; 96372; 99283; J0696; Q0111

== ENCOUNTER 2021-02-08 23:50 | Emergency (ER) | payer SELFPAY ==
[~2021-02-08] VITALS: Ht 175.3 cm; Wt 90.0 kg
[~2021-02-08 23:50] MED LIST changes: -DOXY100C2 PO; +DOXY100C3 PO
[2021-02-08 23:56] VITALS: BP 159/104
[2021-02-09 00:08] LABS: BILIRUBIN,URINE NEGATIVE (NEG); CLARITY,URINE CLEAR; COLOR,URINE YELLOW; NITRITE,URINE NEGATIVE (NEG); PROTEIN,URINE NEGATIVE (NEG-TRACE)
[2021-02-09 00:13] LABS: BACTERIA,URINE FEW /HPF (0-FEW)
[2021-02-09] MEDS ORDERED: CEPHALEXIN 250 MG CAPSULE. PO ONE (00:15)
[2021-02-09] MEDS ORDERED: PHENAZOPYRIDINE 200 MG TABLET. PO ONE (00:15)
[2021-02-09] MEDS ORDERED: PHEN-318 PO (00:20)
[2021-02-09] MEDS ORDERED: CEPH500C PO (00:20)
--- NOTE | 2021-02-09 00:20 | PHYS DOC ---
Past Medical History Past Medical History: Anxiety, Asthma, Hypertension, Other Additional Past Medical Histor: Gestational Hypertension, Kienbock disease Past Surgical History: Other Additional Past Surgical Histo: Hernia,partial R)wrist replacement,R HIP,R WRIST ORIF Smoking Status: Current Every Day Smoker Alcohol Use: Occasionally Drug Use: Marijuana General Adult EDM: Chief Complaint: PAIN ON URINATION HPI: HPI: Patient is a 35-year-old female presents with 1 week history of dysuria. Denies fever chills. Denies trauma. Denies nausea or vomiting. Denies . 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 Heart Score: C/O Chest Pain: N/A Current Medications: Current Medications Medications (Trade) Dose Ordered Sig/Kane Start Time Stop Time Status Last Admin Dose Admin Cephalexin HCl (Keflex) 500 mg 1X ONCE 02/09/21 00:15 02/09/21 00:16 UNV Phenazopyridine HCl (Pyridium) 200 mg 1X ONCE 02/09/21 00:15 02/09/21 00:16 UNV Allergies: Allergies: Allergies Coded Allergies Type Severity Reaction Last Updated Verified shellfish derived Allergy Intermediate Hives 01/16/18 Yes Physical Exam: PE: Constitutional: Well developed, well nourished, no acute distress, non-toxic appearance HENT: Normocephalic, atraumatic Eyes: Conjunctiva normal, no discharge Neck: Normal range of motion, supple Lungs & Thorax: No respiratory distress, equal chest rise and fall Abdomen: Soft, no tenderness, no guarding/rebound tenderness/distention Skin: Warm, dry, no erythema, no rash Back: No tenderness, no CVA tenderness Extremities: No tenderness, ROM intact, no edema Neurologic: Alert and oriented X 3, no focal deficits noted Psychologic: Affect normal, judgment normal Current Patient Data: Labs: Laboratory Tests Test 02/08/21 23:59 Urine Collection Type Unknown Urine Color Yellow Urine Clarity Clear Urine pH 6.0 (<5.0-8.0) Urine Specific [place] 1.020 (1.000-1.030) Urine Protein Negative mg/dL (NEG-TRACE) Urine Glucose (UA) Negative mg/dL (NEG) Urine Ketones (Stick) Negative mg/dL (NEG) Urine Blood Large (NEG) Urine Nitrite Negative (NEG) Urine Bilirubin Negative (NEG) Urine Urobilinogen Dipstick 1.0 mg/dL (0.2 mg/dL) Urine Leukocyte Esterase Small (NEG) Urine RBC 11-20 /HPF (0-2) Urine WBC 5-10 /HPF (0-4) Urine Squamous Epithelial Cells Mod /LPF Urine Bacteria Few /HPF (0-FEW) Urine Mucus Mod /LPF Vital Signs: Vital Signs Date Time Temp Pulse Resp B/P (MAP) Pulse Ox O2 Delivery O2 Flow Rate FiO2 02/08/21 23:56 97.7 84 16 159/104 (129) 100 Room Air 97.7 EKG: EKG: [] Radiology/Procedures: Radiology/Procedures: [] Course & Med Decision Making: Course & Med Decision Making Pertinent Lab studies reviewed. (See chart for details) Patient with nonperitoneal abdomen presents with HPI and physical exam consistent for acute UTI. UA with signs of infection. Urine negative. Symptomatic treatment provided. Empiric antibiotic initiated. Patient also reports concern for possible yeast infection and recurrence of yeast infection. Diflucan therefore provided along with prescription to take it and of course of antibiotic therapy. Patient stable for discharge with outpatient follow-up with PCP. Discussed findings and plan with patient, who acknowledges understanding and agreement. [place] Disclaimer: Mike Disclaimer: This electronic medical record was generated, in whole or in part, using a voice recognition dictation system. Departure Departure Impression: Primary Impression: UTI (lower urinary tract infection) Disposition: HOME / SELF CARE / HOMELESS Condition: STABLE Referrals: OLIVIER EDWARDS MD (PCP) Patient Instructions: Urinary Tract Infection, [id number] Scripts Fluconazole (DIFLUCAN) 200 Mg Tablet 1 TAB PO DAILY, #1 TAB Start this prescription after completion of antibiotic therapy. Prov: GASTON THRASHER DO 02/09/21 Phenazopyridine Hcl (PYRIDIUM) 200 Mg Tablet 200 MG PO TID for 2 Days, #6 TAB Prov: GASTON THRASHER DO 02/09/21 Cephalexin (KEFLEX) 500 Mg Capsule 1 CAP PO TID for 7 Days, #21 CAP Prov: GASTON THRASHER DO 02/09/21 GASTON THRASHER DO Feb 09, 2021 00:20
[2021-02-09 00:25] LABS: U PREG PATIENT NEGATIVE (NEG)
[2021-02-09] MEDS ORDERED: FLUC200T PO (00:28)
[2021-02-09] MEDS ORDERED: FLUCONAZOLE 100 MG TABLET. PO ONE (00:30)
== END 2021-02-09 00:53 | disposition home or self-care (01) ==
LOC: ER 23:50
DX: N39.0 Urinary tract infection, site not specified (principal); J45.909 Unspecified asthma, uncomplicated; I10 Essential (primary) hypertension; F17.200 Nicotine dependence, unspecified, uncomplicated; Z91.013 Allergy to seafood
CPT/HCPCS: 81001; 81025; 87077; 87086; 99284